=== PATIENT | male | born 1940 | race Caucasian/White ===

== ENCOUNTER 2021-05-27 10:54 | Day surgery (SDC) | payer MEDICARE, OTHER, SELFPAY ==
[2021-05-23 15:37] VITALS: BMI 25.7
--- NOTE | 2021-05-25 14:51 | P.CONAN_ITS ---
Documented by User: Jeannie Jc NP 05/27/21 08:17 HPI - Anesthesia Eval Consult details Narrative: 81yo M for Colonoscopy *Mult allergies* ICD in situ d/t vfib CAD with Stent 22 years ago. Follows only with PCP and device clinic. No CP/SOB with activity. [facility], [facility] Past Medical History Medical History (Updated 05/23/21 @ 15:40 by Diana Eric, RN) CAD (coronary artery disease) Elevated cholesterol History of depression HTN (hypertension) Hx of renal calculi PTSD (post-traumatic stress disorder) Surgical History Surgical History (Updated 05/23/21 @ 15:12 by Diana Eric RN) AICD (automatic cardioverter/defibrillator) present History of heart artery stent Hx of colectomy Hx of colonoscopy Hx of hernia repair Social History Social History Housing Other:: mobile home Are you a primary pet care technician to a significant other at home: No Do you presently have visiting nurse or other home services: No Patient Tobacco Use Status: Former Tobacco user Quit Date: Tobacco use type: Cigarette Have you been hit, kicked, punched, or otherwise hurt by someone within the past year? If so, by whom?: No Are you DNR?: No Advance Directives: Yes Advance Directives Information Provided: No Advance Directives on File: No Recently lost weight without trying: No Meds Allergies Allergy/AdvReac Type Severity Reaction Status Date / Time Iodinated Contrast Media Allergy Intermediate Anaphylaxis Verified 05/23/21 15:37 [IV DYE, IODINE CONTAINING] Fish Containing Products Allergy Mild Anaphylaxis Verified 05/23/21 15:37 atorvastatin [ATORVASTATIN] Allergy Unknown JOINT PAIN Verified 05/23/21 15:37 cod fish Allergy Severe Anaphylaxis Uncoded 05/23/21 15:37 spider bites Allergy Intermediate swelling Uncoded 05/23/21 15:37 bee stings Allergy Unknown anaphylaxis Uncoded 05/23/21 15:37 Strawberries Allergy Unknown Unknown Uncoded 05/23/21 15:37 Home Medications Medication Instructions Recorded Confirmed Last Taken Type aspirin 325 mg tablet,delayed 1 tab PO DAILY 05/23/21 05/23/21 Unknown History release atenolol 50 mg tablet 1 tab PO DAILY 05/23/21 05/23/21 Unknown History cholecalciferol (vitamin D3) 50 1 cap PO DAILY 05/23/21 05/23/21 Unknown History mcg (2,000 unit) capsule epinephrine 0.3 mg/0.3 mL 0.3 mg IM ONCE PRN 05/23/21 05/23/21 Unknown History injection, auto-injector fluoxetine 10 mg capsule 30 mg PO DAILY 05/23/21 05/23/21 Unknown History rosuvastatin 40 mg tablet 1 tab PO DAILY 05/23/21 05/23/21 Unknown History Exam Exam Date and Time: May 25, 2021 1451 Height,Weight and Vital Signs: Height 5 ft 10 in Weight 81.193 kg Pertinent Lab Results Pertinent Lab Results: 02/2021 CBC and BMP wnl from outside facility Narrative Narrative: ICD interr 03/2021 on chart (Nml lead and device function. No events.) Assessment and Plan Assessment Anesthesia Assessment: Chart Reviewed Documented by User: Vangie Miller MD 05/27/21 13:30 [facility] Past Medical History Medical History (Updated 05/23/21 @ 15:40 by Diana Eric, SUNDAY) CAD (coronary artery disease) Elevated cholesterol History of depression HTN (hypertension) Hx of renal calculi PTSD (post-traumatic stress disorder) Family History Family history of problems with anesthesia: No Surgical History Surgical History (Updated 05/23/21 @ 15:12 by Diana Eric, SUNDAY) AICD (automatic cardioverter/defibrillator) present History of heart artery stent Hx of colectomy Hx of colonoscopy Hx of hernia repair History of Problems with Anesthesia: No Social History Social History Housing Other:: mobile home Are you a primary pet care technician to a significant other at home: No Do you presently have visiting nurse or other home services: No Patient Tobacco Use Status: Former Tobacco user Quit Date: Tobacco use type: Cigarette Have you been hit, kicked, punched, or otherwise hurt by someone within the past year? If so, by whom?: No Are you DNR?: No Advance Directives: Yes Advance Directives Information Provided: No Advance Directives on File: No Recently lost weight without trying: No Meds Allergies Allergy/AdvReac Type Severity Reaction Status Date / Time Iodinated Contrast Media Allergy Intermediate Anaphylaxis Verified 05/23/21 15:37 [IV DYE, IODINE CONTAINING] Fish Containing Products Allergy Mild Anaphylaxis Verified 05/23/21 15:37 atorvastatin [ATORVASTATIN] Allergy Unknown JOINT PAIN Verified 05/23/21 15:37 cod fish Allergy Severe Anaphylaxis Uncoded 05/23/21 15:37 spider bites Allergy Intermediate swelling Uncoded 05/23/21 15:37 bee stings Allergy Unknown anaphylaxis Uncoded 05/23/21 15:37 Strawberries Allergy Unknown Unknown Uncoded 05/23/21 15:37 Home Medications Medication Instructions Recorded Confirmed Last Taken Type aspirin 325 mg tablet,delayed 1 tab PO DAILY 05/23/21 05/23/21 Unknown History release atenolol 50 mg tablet 1 tab PO DAILY 05/23/21 05/23/21 Unknown History cholecalciferol (vitamin D3) 50 1 cap PO DAILY 05/23/21 05/23/21 Unknown History mcg (2,000 unit) capsule epinephrine 0.3 mg/0.3 mL 0.3 mg IM ONCE PRN 05/23/21 05/23/21 Unknown History injection, auto-injector fluoxetine 10 mg capsule 30 mg PO DAILY 05/23/21 05/23/21 Unknown History rosuvastatin 40 mg tablet 1 tab PO DAILY 05/23/21 05/23/21 Unknown History Exam Airway Mallampati Class: II (Missing) TM Dist: >3cm Neck ROM: Full Heart: rrr Lungs: cta Assessment and Plan Assessment Anesthesia Assessment: Anesthesia Plan Discussed and Chart Reviewed Final Anesthetic Review Family History of Problems with Anesthesia: No History of Problems with Anesthesia: No NPO: Yes ASA Class: III Final Preanesthetic Review: No Changes in Pt Med Stat, Meds/Allgs Chart Reviewed and Consent Obtained/Reviewed Patient Risk: Intermediate Procedure Risk: Intermediate Anesthetic Plan Anesthetic Plan: MAC: Disposition: Standard PACU
[2021-05-27 12:10] VITALS: BP 147/71; PULSE 75; RESP 14; TEMP 36.3; O2SAT 96
[2021-05-27] MEDS: Lactated Ringers 1,000 ML 100 ML IVCONT (12:25)
[2021-05-27 14:21] VITALS: BP 119/68; PULSE 68; RESP 16; TEMP 36.1; O2SAT 96
--- NOTE | 2021-05-27 14:27 | PM.OP ---
Brief Operative Note Date of Service: 05/27/21 Pre-op diagnosis: Screening, History of colon cancer and polyps Post-op diagnosis: other (Diverticulosis) Procedure: Colonoscopy to the anastomosis and small bowel Surgeon: Dakota Saleh Anesthesia: MAC Was an Optical Glass Inspector used for this Procedure?: No Estimated blood loss (mL): 0 Pathology: none sent Condition: stable Disposition: PACU
[2021-05-27 14:36] VITALS: BP 134/71; PULSE 68; RESP 16; TEMP 36.1; O2SAT 96
--- NOTE | 2021-05-27 14:58 | OP_ITS ---
SURGEON: Dakota Saleh MD INDICATIONS: The patient presents for evaluation of personal history of colon cancer and tubular adenoma of the colon. Full consent was obtained from him for this, including risks of bleeding and perforation. PREOPERATIVE DIAGNOSIS: POSTOPERATIVE DIAGNOSIS: PROCEDURE PERFORMED: Colonoscopy to the anastomosis and small bowel. ESTIMATED BLOOD LOSS: COMPLICATIONS: ANESTHESIA: Monitored anesthesia care. ASSISTANTS: SPECIMENS: PREOPERATIVE DIAGNOSES: Personal history of colon cancer and tubular adenoma of the colon. POSTOPERATIVE DIAGNOSES: Personal history of colon cancer, tubular adenoma of the colon, diverticulosis, normal anastomosis, internal hemorrhoids. DESCRIPTION OF PROCEDURE: The patient was placed in the left lateral decubitus position. The digital rectal exam revealed no abnormalities. The Olympus video pediatric colonoscope was entered into the rectum and advanced easily to the level of the anastomosis. The anastomosis appeared normal. The small bowel was cannulated and appeared normal. The scope was withdrawn back in the colon. The entire anastomosis appeared normal. The scope was slowly withdrawn assessing all mucosal surfaces carefully. Preparation was excellent. I did not visualize any sign of polyps, colitis, nor angiodysplasia. There was a mild amount of sigmoid diverticulosis. In the rectum, scope was retroflexed visualizing small internal hemorrhoids, but no other pathology. The rectal mucosa appeared normal. The scope was straightened and withdrawn from the patient. He tolerated the procedure well and was returned to recovery area in stable condition. IMPRESSION: 1. Diverticulosis. 2. Internal hemorrhoids. 3. Normal anastomosis. PLAN: At this point, this was his 4th consecutive negative colonoscopy since the original finding of his colon cancer in 2010. As such, given his age approaching 82, he most likely will not need any further screening colonoscopies. Certainly if he has a change in bowel habits or bleeding, then he should be referred back, but otherwise if things remain stable, I would hold off on any further screening colonoscopies given that this was his 4th negative exam since the initial finding of the colon cancer in 2010. This has been discussed with his daughter. He was advised to resume his aspirin today. MD PAM Schwartz/PATSY / [id number]
== END 2021-05-27 15:20 | disposition home or self-care (01) ==
PROVIDERS: PCP Internal Medicine; Visit Provider Internal Medicine
PROC: 0DJD8ZZ Inspection of Lower Intestinal Tract, Via Natural or Artificial Opening Endoscopic (ICD-10-PCS; CPT 45378; principal; 2021-05-27 12:40)
DX: Z12.11 Encounter for screening for malignant neoplasm of colon (principal); Z85.038 Personal history of other malignant neoplasm of large intestine; Z86.010 Personal history of colon polyps; K57.30 Diverticulosis of large intestine without perforation or abscess without bleeding; K64.8 Other hemorrhoids; Z98.0 Intestinal bypass and anastomosis status; Z90.49 Acquired absence of other specified parts of digestive tract; E78.5 Hyperlipidemia, unspecified; I25.10 Atherosclerotic heart disease of native coronary artery without angina pectoris; Z98.61 Coronary angioplasty status; I10 Essential (primary) hypertension; Z95.810 Presence of automatic (implantable) cardiac defibrillator; Z79.82 Long term (current) use of aspirin; Z91.041 Radiographic dye allergy status; Z88.8 Allergy status to other drugs, medicaments and biological substances; Z87.891 Personal history of nicotine dependence
CPT/HCPCS: G0105